=== PATIENT | female | born 1980 | race Caucasian/White ===

== ENCOUNTER 2016-02-22 11:50 | Emergency (ER) | payer OTHER ==
[~2016-02-22] VITALS: Ht 165.1 cm; Wt 101.7 kg
[~2016-02-22 11:50] MED LIST: BENADRYL50 MG; CARAFATE1 GM PO; DIAZEPAM5 MG PO; LEXAPRO20 MG PO; LUNESTA2 MG PO; PAXIL2 MG/ML PO; PRIMIDONE50 MG PO; QUETIAPINE FUMA50 MG PO; TOPAMAX25 MG PO
[2016-02-22 13:11] LABS: HEMATOCRIT 40.3 % (36.0-46.0); MCH 29.3 PG (29.0-34.0); MCHC 34.5 G/DL (30.0-36.0); MEAN PLAT.VOLUME 10.3 uM^3 (9.5-12.4); PLATELET COUNT 259 K/uL (156-360); RBC DIS.WIDTH-CV 12.8 % (11.8-14.6); RBC DIS.WIDTH-SD 38.8 % (39-53); RED BLOOD COUNT 4.74 M/uL (3.80-5.20); WHITE BLOOD COUNT 10.6 K/uL (4.1-10.2)
[2016-02-22 13:26] LABS: CHLORIDE 106 mEq/L (99-109); POTASSIUM 3.9 mEq/L (3.7-5.4); SODIUM 136 mEq/L (136-147)
[2016-02-22 13:29] LABS: GLUCOSE 90 mg/dL (70-99)
[2016-02-22 13:30] LABS: ANION GAP 11 MEQ/L (2-14)
[2016-02-22 13:31] LABS: TOTAL BILIRUBIN 0.2 mg/dL (0.0-1.0)
[2016-02-22 13:32] LABS: ALKALINE PHOSPHATASE 62 IU/L (3-129); GFR ESTIMATE (CALCULATED) > 59 mL/min/
[2016-02-22 13:33] LABS: UREA NITROGEN (BUN) 10 mg/dL (9-23)
[2016-02-22 13:43] LABS: QUANTITATIVE HCG < 4.0 MIU/ML
[2016-02-22 14:07] LABS: ADD MIUA? NO; BILIRUBIN NEGATIVE; BLOOD NEGATIVE; GLUCOSE (STRIP) NEGATIVE; KETONES NEGATIVE; LEUKOCYTES NEGATIVE; NITRITE NEGATIVE; PH, URINE 6.5 (5-8); PROTEIN (STRIP) NEGATIVE; SPECIFIC GRAVITY 1.001 (1.000-1.030); UCUL ADDED? NO; UROBILINOGEN 0.2 MG/DL (0.2-1.0)
[2016-02-22 14:10] LABS: COLOR PALE STRAW ((YELLOW))
[2016-02-22] MEDS ORDERED: TORADOL10 MG PO (15:12)
[2016-02-22] MEDS ORDERED: ZOFRAN ODT4 MG PO (15:12)
[2016-02-22 15:29] VITALS: BP 134/94
[2016-03-03] MEDS ORDERED: LEXAPRO20 MG PO (12:15)
[2016-03-03] MEDS ORDERED: ZOFRAN4 MG PO (12:16)
== END 2016-02-22 15:31 | disposition home or self-care (01) ==
LOC: EME 11:50
DX: R10.11 Right upper quadrant pain (principal); R11.2 Nausea with vomiting, unspecified; R19.7 Diarrhea, unspecified; F17.200 Nicotine dependence, unspecified, uncomplicated
CPT/HCPCS: 74177; 80053; 81003; 84702; 85027; 99281; 99284; J1885; J2270; J2405

== ENCOUNTER → 2016-03-04 | Outpatient (CLI) | payer OTHER ==
[~2016-03-04] VITALS: Ht 165.1 cm; Wt 102.1 kg
[~2016-03-04] MED LIST changes: +TORADOL10 MG PO; +ZOFRAN ODT4 MG PO; +ZOFRAN4 MG PO
== END | disposition home or self-care (01) ==
LOC: AMB 10:14
DX: R10.9 Unspecified abdominal pain (principal); K29.90 Gastroduodenitis, unspecified, without bleeding; K25.9 Gastric ulcer, unspecified as acute or chronic, without hemorrhage or perforation; R01.1 Cardiac murmur, unspecified; F17.200 Nicotine dependence, unspecified, uncomplicated
CPT/HCPCS: 88305; 88342 TC; B4087; J3010

== ENCOUNTER 2016-05-18 08:54 | Emergency (ER) | payer OTHER ==
[~2016-05-18] VITALS: Ht 165.1 cm; Wt 103.3 kg
[2016-05-18 09:41] LABS: HEMATOCRIT 40.7 % (36.0-46.0); MCH 28.2 PG (29.0-34.0); MCHC 32.7 G/DL (30.0-36.0); MCV 86.4 FL (83-99); MEAN PLAT.VOLUME 10.2 uM^3 (9.5-12.4); PLATELET COUNT 268 K/uL (156-360); RBC DIS.WIDTH-CV 12.7 % (11.8-14.6); RBC DIS.WIDTH-SD 40.1 % (39-53); RED BLOOD COUNT 4.71 M/uL (3.80-5.20)
[2016-05-18 09:51] LABS: CHLORIDE 108 mEq/L (99-109); POTASSIUM 4.2 mEq/L (3.7-5.4); SODIUM 138 mEq/L (136-147)
[2016-05-18 09:54] LABS: GLUCOSE 110 mg/dL (70-99)
[2016-05-18 09:55] LABS: ANION GAP 7 MEQ/L (2-14); TOTAL BILIRUBIN 0.3 mg/dL (0.0-1.0)
[2016-05-18 09:57] LABS: ALKALINE PHOSPHATASE 70 IU/L (3-129); GFR ESTIMATE (CALCULATED) > 59 mL/min/
[2016-05-18 09:58] LABS: UREA NITROGEN (BUN) 9 mg/dL (9-23)
[2016-05-18 10:01] LABS: LIPASE 17 U/L (1.0-51.0)
[2016-05-18 10:07] LABS: QUANTITATIVE HCG < 4.0 MIU/ML
[2016-05-18 10:46] LABS: ADD MIUA? NO; BILIRUBIN NEGATIVE; BLOOD NEGATIVE; COLOR YELLOW ((YELLOW)); GLUCOSE (STRIP) NEGATIVE; KETONES NEGATIVE; LEUKOCYTES NEGATIVE; NITRITE NEGATIVE; PROTEIN (STRIP) NEGATIVE; SPECIFIC GRAVITY 1.009 (1.000-1.030); UROBILINOGEN 0.2 MG/DL (0.2-1.0)
[2016-05-18] MEDS ORDERED: ZOFRAN ODT4 MG PO (11:54)
[2016-05-18] MEDS ORDERED: BENTYL10 MG PO (11:54)
[2016-05-18 12:01] VITALS: BP 124/71
== END 2016-05-18 12:05 | disposition home or self-care (01) ==
LOC: EME 08:54
PROVIDERS: Nurse Practitioner Family
DX: R11.10 Vomiting, unspecified (principal); Z87.440 Personal history of urinary (tract) infections; F17.200 Nicotine dependence, unspecified, uncomplicated
CPT/HCPCS: 74177; 80053; 81003; 83690; 84702; 85027; 99281; 99285; J1885; J2405; J2765; J7030

== ENCOUNTER 2016-11-15 19:16 | Emergency (ER) | payer OTHER ==
[~2016-11-15] VITALS: Ht 165.1 cm; Wt 105.7 kg
[~2016-11-15 19:16] MED LIST changes: +BENTYL10 MG PO
[2016-11-15 19:59] LABS: HEMATOCRIT 43.1 % (36.0-46.0); MCH 28.9 PG (29.0-34.0); MCHC 33.2 G/DL (30.0-36.0); MCV 87.1 FL (83-99); MEAN PLAT.VOLUME 9.9 uM^3 (9.5-12.4); PLATELET COUNT 284 K/uL (156-360); RBC DIS.WIDTH-CV 12.5 % (11.8-14.6); RED BLOOD COUNT 4.95 M/uL (3.80-5.20); WHITE BLOOD COUNT 11.7 K/uL (4.1-10.2)
[2016-11-15 20:10] LABS: CHLORIDE 107 mEq/L (99-109); POTASSIUM 3.9 mEq/L (3.7-5.4); SODIUM 140 mEq/L (136-147)
[2016-11-15 20:11] LABS: GLUCOSE 89 mg/dL (70-99)
[2016-11-15 20:13] LABS: ANION GAP 11 MEQ/L (2-14)
[2016-11-15 20:15] LABS: GFR ESTIMATE (CALCULATED) > 59 mL/min/
[2016-11-15 20:16] LABS: UREA NITROGEN (BUN) 10 mg/dL (9-23)
[2016-11-15 20:22] LABS: TROP-I INTERPRETATION NEGATIVE; TROPONIN-I < 0.01 ng/mL (0.0-0.30)
[2016-11-15 22:40] LABS: DIRECT BILIRUBIN 0.1 mg/dL (0.0-0.3); TOTAL BILIRUBIN 0.3 MG/DL (0.0-1.0)
[2016-11-15 22:47] LABS: ALKALINE PHOSPHATASE 74 IU/L (3-129); LIPASE 23 U/L (1.0-51.0)
[2016-11-15] MEDS ORDERED: PEPCID20 MG PO (23:50)
[2016-11-15] MEDS ORDERED: NAPROXEN500 MG PO (23:50)
[2016-11-16 00:09] VITALS: BP 115/81
== END 2016-11-16 00:12 | disposition home or self-care (01) ==
LOC: EME 19:16
DX: R07.9 Chest pain, unspecified (principal); K21.9 Gastro-esophageal reflux disease without esophagitis; F17.200 Nicotine dependence, unspecified, uncomplicated
CPT/HCPCS: 71020; 80048; 80076; 83690; 84484; 85027; 93005; 99281; 99284

== ENCOUNTER 2016-11-19 09:54 | Emergency (ER) | payer OTHER ==
[~2016-11-19] VITALS: Ht 165.1 cm; Wt 106.0 kg
[~2016-11-19 09:54] MED LIST changes: +NAPROXEN500 MG PO; +PEPCID20 MG PO
[2016-11-19 10:28] LABS: HEMATOCRIT 41.5 % (36.0-46.0); MCH 29.1 PG (29.0-34.0); MCHC 33.5 G/DL (30.0-36.0); MCV 86.8 FL (83-99); MEAN PLAT.VOLUME 10.3 uM^3 (9.5-12.4); PLATELET COUNT 244 K/uL (156-360); RBC DIS.WIDTH-CV 12.6 % (11.8-14.6); RBC DIS.WIDTH-SD 39.9 % (39-53); RED BLOOD COUNT 4.78 M/uL (3.80-5.20); WHITE BLOOD COUNT 11.6 K/uL (4.1-10.2)
[2016-11-19 10:38] LABS: CHLORIDE 107 mEq/L (99-109); POTASSIUM 4.1 mEq/L (3.7-5.4); SODIUM 139 mEq/L (136-147)
[2016-11-19 10:40] LABS: GLUCOSE 101 mg/dL (70-99)
[2016-11-19 10:41] LABS: ANION GAP 9 MEQ/L (2-14)
[2016-11-19 10:44] LABS: GFR ESTIMATE (CALCULATED) > 59 mL/min/; UREA NITROGEN (BUN) 8 mg/dL (9-23)
[2016-11-19 11:16] LABS: TOTAL BILIRUBIN 0.3 mg/dL (0.0-1.0)
[2016-11-19 11:17] LABS: ALKALINE PHOSPHATASE 74 IU/L (3-129)
[2016-11-19 11:20] LABS: DIRECT BILIRUBIN 0.1 mg/dL (0.0-0.3)
[2016-11-19 11:21] LABS: LIPASE 17 U/L (1.0-51.0)
[2016-11-19 11:27] LABS: QUANTITATIVE HCG < 4.0 MIU/ML
[2016-11-19] MEDS ORDERED: ULTRAM50 MG PO (13:50)
[2016-11-19] MEDS ORDERED: CIPRO500 MG PO (13:50)
[2016-11-19] MEDS ORDERED: FLAGYL500 MG PO (13:50)
[2016-11-19 14:03] VITALS: BP 116/70
== END 2016-11-19 14:14 | disposition home or self-care (01) ==
LOC: EME 09:54
DX: K52.9 Noninfective gastroenteritis and colitis, unspecified (principal); E86.0 Dehydration; F17.200 Nicotine dependence, unspecified, uncomplicated
CPT/HCPCS: 74176; 80048; 80076; 83690; 84702; 85027; 86850; 86900; 86901; 99281; 99285; J0500; J2270; J2405; J7030

== ENCOUNTER 2017-03-06 13:02 | Emergency (ER) | payer OTHER ==
[~2017-03-06] VITALS: Ht 167.6 cm; Wt 101.0 kg
[~2017-03-06 13:02] MED LIST changes: +CIPRO500 MG PO; +FLAGYL500 MG PO; +ULTRAM50 MG PO
[2017-03-06] MEDS ORDERED: LEVAQUIN750 MG PO (17:29)
[2017-03-06] MEDS ORDERED: ZUPLENZ8 MG PO (17:29)
[2017-03-06] MEDS ORDERED: NORCO 5/3251 TABLET PO (17:29)
[2017-03-06 18:16] VITALS: BP 128/64
== END 2017-03-06 18:17 | disposition home or self-care (01) ==
LOC: EME 13:02
DX: N12 Tubulo-interstitial nephritis, not specified as acute or chronic (principal); E86.0 Dehydration; F17.200 Nicotine dependence, unspecified, uncomplicated; F32.9 Major depressive disorder, single episode, unspecified; F41.9 Anxiety disorder, unspecified; G43.909 Migraine, unspecified, not intractable, without status migrainosus
CPT/HCPCS: 74176; 80053; 81003; 83690; 84702; 85025 91